=== PATIENT | male | born 1990 | race Caucasian/White ===

== ENCOUNTER 2018-03-23 17:52 | Emergency (ER) | payer BC, OTHER ==
[2018-03-23 17:57] VITALS: BP 156/95
--- NOTE | 2018-03-23 18:15 | EDPHY ---
General Time Seen by Provider: 03/23/18 18:06 Narrative: CHIEF COMPLAINT: Anxiety HISTORY OF PRESENT ILLNESS: Patient presents by private vehicle with complaints of anxiety. He states that he has been very anxious and stressed over 2 weeks. He reports multiple social stressors and that he is flying to [place] tomorrow. He is most concerned about his flight to [place], feeling anxious about doing so. He has never flown that far. He has no chest pain. No shortness of breath. He denies any thoughts of self-harm or harm towards others. He says that he has not been able to sleep from this and has been drinking beer in the evenings to help do so. This is minimally helpful. He denies any illicit substance use but does use some marijuana. No other associated complaints or modifying factors. REVIEW OF SYSTEMS: 10 systems were reviewed and negative with the exception of the elements mentioned in the history of present illness. PCP: None SPECIALISTS: None PAST MEDICAL HISTORY: Denies PAST SURGICAL HISTORY: Denies SOCIAL HISTORY: Uses electronic/vaporizer nicotine. Daily beer ingestion. Occasional marijuana use. Works as an electrician helper for [employer] FAMILY HISTORY: Noncontributory EXAMINATION: General Appearance: Alert, no distress. Conversing appropriately. Ambulatory. Well-appearing and nontoxic Head: normocephalic, atraumatic Eyes: Pupils equal and round, no conjunctival pallor or injection ENT, Mouth: Mucous membranes moist Neck: Normal inspection, supple, non-tender Respiratory: Lungs are clear to auscultation Cardiovascular: Regular rate and rhythm Gastrointestinal: Abdomen is soft and nontender Back: non-tender, no bony abnormalities Neurological: GCS 15. A&O, nonfocal, normal gait. No pronator drift. No tremor. Normal [id number]. Skin: Warm and dry, no rash Extremities: Nontender, no pedal edema Psychiatric: Anxious mood and affect. Fidgeting. DIFFERENTIAL DIAGNOSES: Including but not limited to acute anxiety reaction, fear of flying, alcohol dependency, alcohol withdrawal, delirium tremens, substance abuse, benzodiazepine dependence. MDM: 6:15 p.m. Reports of increasing anxiety and stress with the past 2 weeks with fear of flying tomorrow. The patient does have some fidgeting and appears mildly anxious, but his vital signs are within normal limits. He denies any suicidal or homicidal ideation. He denies any dependency on alcohol. He denies any use of benzodiazepine, prescription or obtained illegally. He states that he has no prior prescriptions of benzodiazepines in no anti anxiety medications in the past. He has no primary care physician. I do not appreciate any evidence of alcohol withdrawal or delirium tremens. There is no odor of alcohol about him. I do feel it is reasonable to trial him on a non have a forming, non controlled anti anxiety medication. I prescribed hydroxyzine for this. I have given him instructions to take this 30 min prior to flying and at night when needed. Discussed not operate any machinery or drive with this. We discussed minimal alcohol intake with this. We discussed follow up primary care physician upon return home, and we provided the information for him. He is well -appearing and discharged home stable condition. SUPERVISION: This patient was independently evaluated without direct involvement of or examination by the attending physician. CONSULTATION: None - History Smoking Status: Current every day smoker - Objective Vital Signs: Initial Vital Signs Temperature (C) 98.1 F 03/23/18 17:56 Heart Rate 77 03/23/18 17:56 Respiratory Rate 16 03/23/18 17:56 Blood Pressure 156/95 H 03/23/18 17:56 O2 Sat (%) 95 03/23/18 17:56 O2 Delivery Mode Room Air Allergies/Adverse Reactions: No Known Allergies Allergy (Verified 03/03/13 23:12) Home Medications: Medication Instructions Recorded Miscellaneous Medical Supply [NO 1 ea MIS AD 03/03/13 HOME MEDS] Pharmacy Completed 03/04/13 03/04/13 hydrOXYzine HCL [Hydroxyzine HCl] 50 mg PO Q8 PRN #15 tablet 03/23/18 Departure - Departure Disposition: Home, Routine, Self-Care Clinical Impression: Anxiety with flying, Anxiety in acute stress reaction Condition: Good Instructions: Anxiety (ED), Anxiolysis in Adults (ED) Additional Instructions: 1. Atarax/hydroxyzine as prescribed as needed for anxiety. Do not drive or operate machinery with this medication 2. I provided the on-call outpatient physician for you to call and establish with upon return home 3. ED precautions for worsening anxiety, any thoughts of self-harm or harm towards others Referrals: Jaron Newton MD [Medical Doctor] - As per Instructions Prescriptions: hydrOXYzine HCL [Hydroxyzine HCl] 50 mg PO Q8 PRN #15 tablet PRN Reason: Anxiety
== END 2018-03-23 18:23 | disposition home or self-care (01) ==
DX: F43.0 Acute stress reaction (principal); F40.243 Fear of flying